=== PATIENT | female | born 1955 | race Two or more races ===

== ENCOUNTER 2024-01-15 06:15 | Day surgery (SDC) | payer OTHER ==
[~2024-01-15 06:15] MED LIST: AMLODIPINE-OLM1 EAC2 PO; ATORVASTATIN CA20 MG PO; GLUMETZA500 MG PO; LOSARTAN POTAS100 MG PO; ZYLOPRIM100 M1 PO
[2024-01-15] MEDS ORDERED: CEFAZOLIN SODIUM 1,000 MG VIAL ONE (10:46)
[2024-01-15] MEDS ORDERED: CHLORHEXIDINE GLUCONATE 120 ML BOTTLE TOP ONE ×2 (11:00→11:30)
[2024-01-15] MEDS ORDERED: CEFAZOLIN SODIUM 1,000 MG VIAL IV ONE (11:30)
== END 2024-01-15 13:10 | disposition home or self-care (01) ==
LOC: CIR.AMB 06:15
PROVIDERS: ATTEND Surgery Surgery of the Hand
DX: M67.843 Other specified disorders of tendon, right hand (principal)